=== PATIENT | female | born 1985 | race Caucasian/White ===

== ENCOUNTER 2019-09-18 17:26 | Emergency (ER) | payer SELFPAY ==
[2019-09-18 17:38] VITALS: BP 133/85
--- NOTE | 2019-09-18 17:42 | ER Document Report ---
HPI - HPI Time Seen by Provider: 09/18/19 17:38 Pain Level: 2 Notes: Patient is a 34-year-old female no significant past medical history aside from hypothyroidism who presents complaining of urinary burning, urgency, frequency, suprapubic pressure, voiding small amounts over the past month, but worsening over the past week. Patient states that she does not have insurance and has been trying to do conservative measures with minimal relief. Patient states that she is starting a sore to the right flank, but no severe pain. Denies drug allergies. Denies any headache, fever, neck pain, URI, sore throat, chest pain, palpitations, syncope, cough, shortness of breath, wheeze, dyspnea, nausea/vomiting/diarrhea, numbness/tingling, saddle anesthesia, muscle paralysis/weakness, or rash. - ROS Systems Reviewed and Negative: Yes All other systems reviewed and negative - REPRODUCTIVE Reproductive: DENIES: : Past Medical History - Social History Smoking Status: Current Every Day Smoker Chew tobacco use (# tins/day): No Frequency of alcohol use: None Drug Abuse: None Family History: Reviewed & Not Pertinent Patient has suicidal ideation: No Patient has homicidal ideation: No Vertical Provider Document - CONSTITUTIONAL Agree With Documented VS: Yes Notes: PHYSICAL EXAMINATION: GENERAL: Well-appearing, well-nourished and in no acute distress. LUNGS: Breath sounds clear to auscultation bilaterally and equal. No wheezes rales or rhonchi. HEART: Regular rate and rhythm without murmurs, rubs, gallops. ABDOMEN: Soft, nontender, nondistended abdomen. No guarding, no rebound. Normal bowel sounds present. + mild rt CVA tenderness. Musculoskeletal: FROM to passive/active. Strength 5+/5. Extremities: No cyanosis, clubbing, or edema b/l. Peripheral pulses 2+. Capillary refill less than 3 seconds. NEUROLOGICAL: Normal speech, normal gait. PSYCH: Normal mood, normal affect. SKIN: Warm, Dry, normal turgor, no rashes or lesions noted. - INFECTION CONTROL TRAVEL OUTSIDE OF THE [place] IN LAST 30 DAYS: No Course - Re-evaluation Re-evalutation: 09/18/19 Patient is an afebrile, well-hydrated, 34-year-old female who presents to the ED with an acute UTI. Vitals are acceptable without any significant tachycardia, tachypnea, or hypoxia. PE is otherwise unremarkable. Patient's abdomen is soft and nontender. She has mild rt CVA tenderness. See urinalysis results. Urine culture is pending. HCG negative. No other labs or imaging warranted at this time based on H&P. Low suspicion/risk for acute appendicitis, bowel obstruction, acute cholecystitis, acute cholangitis, perforated diverticulitis, incarcerated hernia, pancreatitis, perforated ulcer, peritonitis, sepsis, pelvic inflammatory disease, ectopic , tubo-ovarian abscess, ovarian torsion, or other systemic emergent condition at this time. Patient is aware that her condition can change from initial presentation and she needs to monitor symptoms closely and seek medical attention if any acute changes. I will send her home with a prescription for Keflex. Conservative measures otherwise for symptoms. Recheck with your PCM in 3-5 days. Consider consult with a Urologist. Return to the ED with any worsening/concerning symptoms otherwise as reviewed in discharge. Patient is in agreement. Discharge - Discharge Clinical Impression: Acute UTI (urinary tract infection) Condition: Stable Disposition: HOME, SELF-CARE Instructions: Cephalexin ([facility]), Urinary Tract Infection ([facility]) Additional Instructions: Push fluids (i.e. water, cranberry juice) Proper hygenic technique Keep the skin clean Tylenol/ibuprofen as needed May use over the counter AZO for burning with urination Take medications as directed F/u with your PCM in 3-5 days for a recheck Consider consult with a Urologist for ongoing/worsening symptoms. Return to the ED with any worsening symptoms and/or development of fever, headache, chest pain, palpitations, syncope, shortness of breath, trouble breathing, abdominal pain, n/v/d, blood in stool/urine, loss of control of bowel/bladder, urinary retention, or other worsening symptoms that are concerning to you. Prescriptions: Cephalexin Monohydrate [Keflex 500 mg Capsule] 500 mg PO TID #21 capsule Forms: Elevated Blood Pressure Referrals: [facility] [Provider Group] - Follow up as needed
[2019-09-18 18:10] LABS: APPEARANCE,URINE CLOUDY; BILIRUBIN,URINE NEGATIVE (NEGATIVE); COLOR,URINE YELLOW; GLUCOSE, URINE NEGATIVE (NEGATIVE); KETONES,URINE NEGATIVE (NEGATIVE); LEUKOCYTE ESTERASE,URINE LARGE (NEGATIVE); NITRITE,URINE NEGATIVE (NEGATIVE); PROTEIN,URINE 100 mg/dL (NEGATIVE); URINE SPECIFIC GRAVITY 1.031; UROBILINOGEN,URINE NEGATIVE mg/dL (<2.0)
== END 2019-09-18 18:40 | disposition home or self-care (01) ==
LOC: ER 17:26
DX: N39.0 Urinary tract infection, site not specified (principal); F17.200 Nicotine dependence, unspecified, uncomplicated
CPT/HCPCS: 81001; 81025; 87086; 87088; 87186; 99283

== ENCOUNTER 2019-09-27 13:01 | Emergency (ER) | payer SELFPAY ==
--- NOTE | 2019-09-27 13:13 | ER Document Report ---
ED Medical Screen (RME) - General Chief Complaint: Urinary Problem Stated Complaint: URINARY ISSUE Time Seen by Provider: 09/27/19 13:06 Notes: Patient is a 34-year-old female who presents emergency department with multiple complaints. Patient reports she was diagnosed with a urinary tract infection 8 days ago and was placed on Keflex. Patient reports after 3 to 4 days of antibiotics she felt like it was improving but has now finished the medication and feels like her symptoms are still there. Patient reports she feels incontinent of her urine and having urinary frequency. Patient denies fever. Patient reports low back pain. Patient reports she also has issues with constipation but has never gone 2 weeks without a bowel movement. Patient reports she is used Metamucil without relief. Patient also reports possibly getting bit by something to the left breast and has a draining abscess. TRAVEL OUTSIDE OF THE [place] IN LAST 30 DAYS: No - Related Data Allergies/Adverse Reactions: No Known Allergies Allergy (Verified 09/18/19 18:24) Past Medical History Past Surgical History: Reports: Hx Cholecystectomy, Hx Tubal Ligation Physical Exam - Vital signs Vitals: Temp Pulse Resp BP Pulse Ox 98.0 F 84 16 129/78 H 97 09/27/19 13:06 09/27/19 13:06 09/27/19 13:06 09/27/19 13:06 09/27/19 13:06 - Respiratory Respiratory status: No respiratory distress Chest status: Nontender Breath sounds: Normal Chest palpation: Normal Course - Re-evaluation Re-evalutation: 09/27/19 13:13 I have greeted and performed a rapid initial assessment of this patient. A comprehensive ED assessment and evaluation of the patient, analysis of test results and completion of the medical decision making process will be conducted by additional ED providers. - Vital Signs Vital signs: Temp Pulse Resp BP Pulse Ox 98.0 F 84 16 129/78 H 97 09/27/19 13:06 09/27/19 13:06 09/27/19 13:06 09/27/19 13:06 09/27/19 13:06
[2019-09-27 13:53] LABS: ABSOLUTE BASOPHILS # (AUTO) 0.1 10^3/uL (0.0-0.2); ABSOLUTE EOSINOPHILS # (AUTO) 0.3 10^3/uL (0.0-0.6); ABSOLUTE LYMPHOCYTES (AUTO) 2.3 10^3/uL (0.5-4.7); ABSOLUTE MONOCYTES (AUTO) 0.4 10^3/uL (0.1-1.4); ABSOLUTE NEUT (AUTO) 4.2 10^3/uL (1.7-8.2); EOSINOPHILS % (AUTO) 4.3 % (0-6); HEMATOCRIT 36.9 % (36.0-47.0); HEMOGLOBIN 12.5 g/dL (12.0-15.5); MEAN CORPUSCULAR HEMOGLOBIN 31.1 pg (27.0-33.4); MEAN CORPUSCULAR HGB CONC 33.8 g/dL (32.0-36.0); MEAN CORPUSCULAR VOLUME 92 fl (80-97); MONOCYTES % (AUTO) 5.4 % (3-13); PLATELET COUNT 239 10^3/uL (150-450); RED BLOOD COUNT 4.02 10^6/uL (3.72-5.28); RED CELL DISTRIBUTION WIDTH 14.4 % (11.5-14.0); SEGMENTED NEUTROPHILS % (AUTO) 57.3 % (42-78); TOTAL CELLS COUNTED % (AUTO) 100 %; WHITE BLOOD COUNT 7.3 10^3/uL (4.0-10.5)
[2019-09-27 14:13] LABS: ALBUMIN 4.1 g/dL (3.5-5.0); ALKALINE PHOSPHATASE 39 U/L (38-126); ANION GAP 9 (5-19); ASPARTATE AMINO TRANSFERASE 22 U/L (14-36); BLOOD UREA NITROGEN 18 mg/dL (7-20); CALCIUM 9.5 mg/dL (8.4-10.2); CARBON DIOXIDE 28 mmol/L (22-30); CHLORIDE 103 mmol/L (98-107); GLUCOSE 106 mg/dL (75-110); POTASSIUM 4.1 mmol/L (3.6-5.0)
[2019-09-27 14:14] LABS: BILIRUBIN,DIRECT 0.1 mg/dL (0.0-0.4); BILIRUBIN,TOTAL 0.4 mg/dL (0.2-1.3); TOTAL PROTEIN 7.2 g/dL (6.3-8.2)
--- NOTE | 2019-09-27 14:21 | ER Document Report ---
ED GI/ - General Chief Complaint: Urinary Problem Stated Complaint: URINARY ISSUE Time Seen by Provider: 09/27/19 13:06 Primary Care Provider: [facility] [Provider Group] - Follow up as needed [facility] [Provider Group] - Follow up as needed Notes: Patient is a 34-year-old female who presents to the emergency department with a chief complaint of dysuria. Patient states that she was treated for urinary tract infection on 18 September and still has symptoms. Patient states that it is not getting any better. Patient also has not had a bowel movement in the past 2 weeks. Patient denies any vomiting. Patient is unsure as to whether or not she has had vaginal discharge. Patient also states that she had an abscess to her left lateral breast. Patient states that there was purulent drainage from it, but states it is a little better. TRAVEL OUTSIDE OF THE [place] IN LAST 30 DAYS: No - Related Data Allergies/Adverse Reactions: No Known Allergies Allergy (Verified 09/18/19 18:24) Past Medical History - Social History Smoking Status: Unknown if Ever Smoked Family History: Reviewed & Not Pertinent Patient has suicidal ideation: No Patient has homicidal ideation: No Past Surgical History: Reports: Hx Cholecystectomy, Hx Tubal Ligation Review of Systems - Review of Systems Notes: REVIEW OF SYSTEMS: CONSTITUTIONAL : Denies recent illness. Denies recent unintentional weight loss. Denies fever, chills, or sweats. EENT: Denies eye, ear, throat, or mouth pain, discharge, or symptoms. Denies nasal or sinus congestion. CARDIOVASCULAR: Denies chest pain. RESPIRATORY: Denies shortness of breath, cough, congestion, difficulty breathing, or wheezing. GASTROINTESTINAL: See HPI. GENITOURINARY: See HPI. FEMALE GENITOURINARY: See HPI. MUSCULOSKELETAL: Denies neck and back pain. Denies joint pain or swelling. SKIN: Denies rash, itchiness, or lesions HEMATOLOGIC : Denies easy bruising or bleeding. LYMPHATIC: Denies swollen, painful, enlarged glands. NEUROLOGICAL: Denies no numbness or tingling denies weakness. Denies headache. Denies altered mental status. Denies alteration in speech. PSYCHIATRIC: Denies stress, anxiety, alteration in sleep patterns, or depression. All other systems reviewed and negative. Physical Exam - Vital signs Vitals: Temp Pulse Resp BP Pulse Ox 98.0 F 84 16 129/78 H 97 09/27/19 13:06 09/27/19 13:06 09/27/19 13:06 09/27/19 13:06 09/27/19 13:06 - Notes Notes: PHYSICAL EXAMINATION: GENERAL: Appears well, healthy, well-nourished, no acute distress. HEAD: Normocephalic, atraumatic. EYES: PERRL, conjunctiva normal, all extraocular movements intact, sclera nonicteric ENT: Moist mucous membranes. NECK: Supple, no noticeable swelling, redness, rash. Normal range of motion. LUNGS: Equal breath sounds bilaterally and clear to auscultation. No wheezes rales or rhonchi. CARDIOVASCULAR: S1-S2, regular rate, regular rhythm. Radial pulses 2+, normal. ABDOMEN: Normoactive bowel sounds. Soft, nontender, no guarding, no rebound tenderness, and no masses palpated. EXTREMITIES: Normal strength and range of motion, no pitting or edema. No cyanosis. NEUROLOGICAL: Moves all extremities upon command. Strength 5/5 in all extremities. PSYCH: Normal mood, normal affect. SKIN: Warm, dry. No rash, lesions, ulcerations noted. Normal skin turgor. BID WRITER: Cervical motion tenderness noted. Right adnexal tenderness noted. Course - Re-evaluation Re-evalutation: 09/27/19 15:16 Pelvic exam done with ADOLFO Gupta at bedside. Patient had cervical motion tenderness and right adnexal tenderness. Patient will be sent for transvaginal ultrasound. 09/27/19 17:00 Transvaginal ultrasound was negative for any acute findings. Patient has normal blood flow to both ovaries.Upstairs hematology is unremarkable. Chemistries are also normal. Urinalysis shows a large amount of leukocytes, but I suspect this is due to her vaginal discharge. She has 4+ epithelial cells and 3+ bacteria on her wet mount, along with 3+ WBCs. There is also a yeast on her wet mount. She will be treated for pelvic inflammatory disease with doxycycline and Flagyl. This will also cover her urinary tract infection. I offered the patient treatment for gonorrhea and chlamydia and she declined treatment for them at this time. She will also receive Diflucan for her yeast infection. She will be referred to [facility] in [facility] in regards to this visit. As for her constipation, she will be sent home with magnesium citrate and a fleets enema. I gave her instructions on how to use both. They a re in her discharge instructions. She is in agreement with this plan. Follow- up precautions were given. Verbal discharge instructions were given to the patient. They verbalized understanding. They are stable for discharge. \ - Vital Signs Vital signs: Temp Pulse Resp BP Pulse Ox 98 F 63 15 118/75 98 09/27/19 18:09 09/27/19 18:09 09/27/19 18:09 09/27/19 18:09 09/27/19 18:09 - Laboratory Result Diagrams: 09/27/19 13:26 09/27/19 13:26 Laboratory results interpreted by me: 09/27/19 09/27/19 09/27/19 13:26 13:26 13:26 RDW 14.4 H Est GFR (MDRD) Non-Af 57 L Urine Protein 30 H Ur Leukocyte Esterase LARGE H Discharge - Discharge Clinical Impression: Pelvic inflammatory disease, Bacterial vaginosis, Yeast infection, Breast abscess Urinary tract infection Qualifiers: Urinary tract infection type: acute pyelonephritis Qualified Code(s): N10 - Acute pyelonephritis Constipation Qualifiers: Constipation type: unspecified constipation type Qualified Code(s): K59.00 - Constipation, unspecified Condition: Stable Disposition: HOME, SELF-CARE Additional Instructions: You were seen today in the emergency department for urinary symptoms. You have bacterial vaginosis and pelvic inflammatory disease. You are being started on a ntibiotics. Please make sure you take all your antibiotics as prescribed. You also have a yeast infection. Take your medication as prescribed. The medication for the pelvic inflammatory disease will also cover the abscess you have on your breast. Please follow-up with the [facility] or [facility] in regards to this visit. You are being sent home with an enema. You can give this yourself at home. You are also being sent home with magnesium citrate. Take half the bottle and wait to have a bowel movement for 4 hours. If you do not have a bowel movement, d rink the rest of the bottle. Prescriptions: Fluconazole [Diflucan] 200 mg PO ONCE PRN #1 tablet PRN Reason: Doxycycline Hyclate 100 mg PO BID #28 capsule Metronidazole [Flagyl 500 mg Tablet] 500 mg PO Q6H #28 tablet Forms: Return to Work Referrals: [facility] [Provider Group] - Follow up as needed [facility] [Provider Group] - Follow up as needed
[2019-09-27 15:29] LABS: T.VAGINALIS (WET MOUNT) NO TRICHOMONAS SEEN; WBCS (WET MOUNT) 3+ WBCS SEEN; YEAST (WET MOUNT) YEAST SEEN
[2019-09-27 15:30] LABS: BACTERIA (WET MOUNT) 3+ BACTERIA SEEN; EPITHELIALS (WET MOUNT) 4+ EPITHELIALS SEEN
--- NOTE | 2019-09-27 15:48 | RADIOLOGY REPORT (SQ) ---
EXAM DESCRIPTION: ACUTE ABDOMEN SERIES COMPLETED DATE/TIME: 09/27/2019 3:25 pm REASON FOR STUDY: constipation, last bm 2 weeks ago COMPARISON: None. NUMBER OF VIEWS: Three views. TECHNIQUE: Frontal chest, supine abdomen and upright/decubitus abdomen radiographic images acquired. LIMITATIONS: None. FINDINGS: CHEST: Lungs clear of infiltrates. FREE AIR: None. No abnormal gas collections. BOWEL GAS PATTERN: Nonobstructive pattern. No dilated loops or air fluid levels. Moderate formed sto ol throughout the colon. CALCIFICATIONS: No radiopaque calcified overlie expected location of the kidneys. Scattered pelvic p hleboliths. HARDWARE: Prior cholecystectomy. SOFT TISSUES: No gross mass or suggestion of organomegaly. BONES: No acute fracture. No worrisome bone lesions. OTHER: No other significant finding. IMPRESSION: No evidence of intestinal obstruction or other acute intra-abdominal process. Moderate formed stool throughout the colon No evidence of acute intrathoracic process. TECHNICAL DOCUMENTATION: JOB ID: [id number] [employer]- All Rights Reserved Reading location - IP/workstation name: [email or web address]
[2019-09-27] MEDS ORDERED: MAGNESIUM CITRATE 296 ML BOTTLE PO ONE (16:16)
[2019-09-27] MEDS ORDERED: NA PHOS,M-B/NA PHOS,DI-BA (ADULT) 133 ML ENEMA PR ONE (16:16)
[2019-09-27 16:23] LABS: AMORPHOUS SEDIMENT,URINE TRACE /HPF; APPEARANCE,URINE CLOUDY; BILIRUBIN,URINE NEGATIVE (NEGATIVE); CALCIUM OXALATE CRYSTALS,URINE FEW /HPF; COLOR,URINE YELLOW; GLUCOSE, URINE NEGATIVE (NEGATIVE); KETONES,URINE NEGATIVE (NEGATIVE); LEUKOCYTE ESTERASE,URINE LARGE (NEGATIVE); NITRITE,URINE NEGATIVE (NEGATIVE); PROTEIN,URINE 30 mg/dL (NEGATIVE); URINE SPECIFIC GRAVITY 1.026; UROBILINOGEN,URINE NEGATIVE mg/dL (<2.0)
--- NOTE | 2019-09-27 16:38 | RADIOLOGY REPORT (SQ) ---
EXAM DESCRIPTION: U/S NON OB PEL TV W/DOPPLER COMPLETED DATE/TIME: 09/27/2019 4:16 pm REASON FOR STUDY: right sided pelvic pain COMPARISON: None. TECHNIQUE: Dynamic and static grayscale images acquired of the pelvis via transvaginal approach and recorded on PACS. Additional selected color Doppler and spectral images recorded. LIMITATIONS: None. FINDINGS: UTERUS: Unremarkable in size measuring 10.3 x 6.9 x 6.3 cm. No mass. ENDOMETRIAL STRIPE: No focal or generalized thickening. No masses. Endometrial stripe measures 1.6 c m CERVIX: Few small nabothian cysts. RIGHT OVARY AND DOPPLER: Normal size measuring 3.1 x 2.9 x 2.0 cm. No worrisome masses. Normal arteri al vascular flow without evidence for torsion. LEFT OVARY AND DOPPLER: Normal size measuring 4.4 x 2.0 x 2.6 cm. No worrisome masses. Normal arteria l vascular flow without evidence for torsion. FREE FLUID: None noted. IMPRESSION: Unremarkable pelvic ultrasound. TECHNICAL DOCUMENTATION: JOB ID: [id number]- All Rights Reserved Rev-03/13 Reading location - IP/workstation name: [email or web address]
[2019-09-27 16:53] LABS: CHLAM PCR NOT DETECTED (NOT DETECT)
[2019-09-27] MEDS ORDERED: FLUCONAZOLE 100 MG TABLET PO ONE (17:13)
[2019-09-27] MEDS ORDERED: METRONIDAZOLE 500 MG TABLET PO ONE (17:14)
[2019-09-27] MEDS ORDERED: DOXYCYCLINE HYCLATE 100 MG TABLET PO ONE (17:14)
[2019-09-27 18:10] VITALS: BP 118/75
== END 2019-09-27 18:10 | disposition home or self-care (01) ==
LOC: ER 13:01
DX: N73.9 Female pelvic inflammatory disease, unspecified (principal); N76.0 Acute vaginitis; B96.89 Other specified bacterial agents as the cause of diseases classified elsewhere; B37.49 Other urogenital candidiasis; N61.1 Abscess of the breast and nipple; N10 Acute pyelonephritis; K59.00 Constipation, unspecified; R30.0 Dysuria
CPT/HCPCS: 99284; 36415; 87210; 85025; 81025; 80053; 81001; 87491; 87591; 74022; 76830; 93976; J3490 ×2

== ENCOUNTER 2020-11-18 08:17 | Emergency (ER) | payer SELFPAY ==
[2020-11-18 08:25] VITALS: BP 128/91
--- NOTE | 2020-11-18 08:29 | ER Document Report ---
ED General - General Stated Complaint: ANKLE PAIN/FALL Time Seen by Provider: 11/18/20 08:20 Primary Care Provider: ARAMIS ESPINOSA JR, DO [ACTIVE PROVISIONAL STAFF] - 11/20/20 TRAVEL OUTSIDE OF THE [place] IN LAST 30 DAYS: No - HPI Notes: 35-year-old female presents to the emergency room today for evaluation of her left ankle and left lower extremity after she sustained a fall at 0715 this morning while she tripped on the dog blanket and fell. Denies hitting her head or any injury to other body parts. Denies any previous injury to her left ankle or left lower extremity, she is unable to bear full weight. She did take 800 mg of ibuprofen at 0725 this morning. She has tried icing but that increased her pain. Reports pain is a dull ache, 2 out of 5 when at rest. LMP October 27, 2020. , she did have a tubal ligation. Denies fevers, chills, chest pain,palpitations, shortness of breath, dyspnea, nausea, vomiting, diarrhea, abdominal pain, hematuria,blurred vision, double vision, loss of vision, speech changes, LH, dizziness, syncope, headaches, wheezing, ST, URI, neck pain, weakness, bowel or bladder dysfunction, saddle anesthesia, numbness or tingling in bilateral upper or lower extremities equally, muscle paralysis, weakness in bilateral upper or lower extremities equally or rash. Denies IV drug use. - Related Data Allergies/Adverse Reactions: No Known Allergies Allergy (Verified 11/18/20 08:40) Past Medical History - General Information source: Patient - Social History Smoking Status: Unknown if Ever Smoked Family History: Reviewed & Not Pertinent Past Surgical History: Reports: Hx Cholecystectomy, Hx Tubal Ligation Review of Systems - Review of Systems Constitutional: No symptoms reported EENT: No symptoms reported Cardiovascular: No symptoms reported Respiratory: No symptoms reported Gastrointestinal: No symptoms reported Genitourinary: No symptoms reported Female Genitourinary: No symptoms reported Musculoskeletal: See HPI Skin: No symptoms reported Hematologic/Lymphatic: No symptoms reported Neurological/Psychological: No symptoms reported Physical Exam - Vital signs Vitals: Temp Pulse Resp BP Pulse Ox 97.4 F 85 20 128/91 H 98 11/18/20 08:24 11/18/20 08:24 11/18/20 08:24 11/18/20 08:24 11/18/20 08:24 - Notes Notes: MEDICATIONS: I agree with the patient medications as charted by the RN. ALLERGIES: I agree with the allergies as charted by the RN. PAST MEDICAL HISTORY/PAST SURGICAL HISTORY: Reviewed and agree as charted by RN. SOCIAL HISTORY: Reviewed and agree as charted by RN. FAMILY HISTORY: No significant familial comorbid conditions directly related to patient complaint EXAM: Reviewed vital signs as charted by RN. PHYSICAL EXAMINATION: reviewed vital signs by RN GENERAL: Well-appearing, well-nourished and in no acute distress. HEAD: Atraumatic, normocephalic. EYES: Pupils equal round and reactive to light, extraocular movements intact, conjunctiva are normal. ENT: Nares patent, oropharynx clear without exudates. Moist mucous membranes. NECK: Normal range of motion, supple without lymphadenopathy LUNGS: Breath sounds clear to auscultation bilaterally and equal. No wheezes rales or rhonchi. HEART: Regular rate and rhythm without murmurs ABDOMEN: Soft, nontender, nondistended abdomen. No guarding, no rebound. No masses appreciated. Female : deferred Musculoskeletal: Normal range of motion, no pitting or edema. No cyanosis. left ankle with swelling, tenderness on lateral aspect of ankle that extends to the distal aspect of the left lateral lower extremity. pain with inversion and eversion. squeeze test negative bilaterally. dtr +2 BLE. Limited APROM on left distal extremity. distal pulses + 2 BLE equally. Full motor and sensory function of bilateral lower extremities. No noted open wounds or abrasion. Unable to bear full weight to left lower extremity. no vascular compromise. Peroneal nerve is intact with strong eversion and plantar flexion. Negative anterior drawer test. muscle strength 5/5 in BLE equally. NEUROLOGICAL: Cranial nerves grossly intact. Normal speech, normal gait. Normal sensory, motor exams PSYCH: Normal mood, normal affect. SKIN: Warm, Dry, normal turgor, no rashes or lesions noted. Course - Re-evaluation Re-evalutation: 11/18/20 10:28 Afebrile, vital stable no distress. Nurses notes reviewed. Will obtain an x- ray of the left ankle as well as the left tib-fib. Patient's pain currently is a 3 out of 5. She did already take a 9 mg of ibuprofen within the last couple of hours, I will give her 975 of oral acetaminophen. Extremity has been elevated. X-ray of left ankle does show a fracture of the distal tibia and posterior malleolus of the tibia. Displacement and tibiotalar joint. I did review these findings with Dr. Hector ledezma, ER supervising physician who did recommend sugar tong splint to the left lower extremity as well as a posterior splint and crutches. I did refer patient to the assistance specialist, Dr. León Espinosa who is on-call for follow-up within the next 2 days. Discussed with patient signs to look for for compartment syndrome. Discussed the importance of using crutches. I did send patient home with a sixpack of [employer], advised to not drive, drink alcohol or operate heavy machinery while taking this medication as it can cause sedation or impairment of cognitive function. Advised alternating Tylenol and ibuprofen, elevate above level of heart, do not bear any weight on extremity, etc. Consent by patient given to place left lower extremity sugar tong and posterior splint,. cms intact, sensory motor function intact in bilateral lower extremities prior to splint application fiberglass splint placed without incident. cms intact 20 minutes after splint application. Splint is in good alignment. Bilateral lower extremities with motor and sensory function intact 20 minutes after application. Pt stated that splint felt comfortable. After performing a Medical Screening Examination, I estimate there is LOW risk for OPEN FRACTURE, COMPARTMENT SYNDROME, DEEP VENOUS THROMBOSIS, ACUTE TENDON RUPTURE, or NEUROVASCULAR INJURY thus I consider the discharge disposition reasonable. I have reevaluated this patient multiple times and no significant life threatening changes are noted. The patient and I have discussed the diagnosis and risks, and we agree with discharging home to closely follow-up with their primary doctor or the referral orthopedist with the understanding that symptoms and presentations can change. We also discussed returning to the Emergency Department immediately if new or worsening symptoms occur. We have discussed the symptoms which are most concerning (e.g., changing or worsening pain, numbness, weakness) that necessitate immediate return 11/18/20 11:08 - Vital Signs Vital signs: Temp Pulse Resp BP Pulse Ox 97.4 F 85 20 128/91 H 98 11/18/20 08:24 11/18/20 08:24 11/18/20 08:24 11/18/20 08:24 11/18/20 08:24 - Laboratory Results Critical Laboratory Results Reviewed: No Critical Results - Radiology Results Critical Radiology Results Reviewed: Yes Attending or Supervising Physician who Reviewed Radiology: Discharge - Discharge Clinical Impression: Fracture of tibia, distal, left, closed Qualifiers: Encounter type: initial encounter Fracture of distal fibula Qualifiers: Encounter type: initial encounter Laterality: left Condition: Stable Disposition: HOME, SELF-CARE Instructions: Compartment Syndrome Cautions ([facility]), Use of Crutches ([facility]), Fracture of Distal Fibula ([facility]), Fractured Ankle (Bimalleolar) ([facility]), Oral Narcotic Medication ([facility]), Splint Precautions ([facility]), Temporary Splint ([facility]) Additional Instructions: Your x-ray today shows that you have fractures of the distal fibula and posterior malleolus of the tibia. There is some displacement of the tibiotalar joint. It is imperative that you do follow-up with the assistance specialist November 20 to schedule an appointment, this is Dr. Espinosa's office. Please do not drive, drink alcohol or operate heavy machinery while taking m edications as this can cause sedation or impairment of cognitive function. Please keep elevated above level of your heart when you are not walking. Use crutches to do not bear any weight on your left ankle. You can alternate chain Tylenol and ibuprofen for pain control. Forms: Parent Work Note, Return to Work Referrals: ARAMIS ESPINOSA JR, DO [ACTIVE PROVISIONAL STAFF] - 11/20/20 RAKAN WING MD [ACTIVE STAFF] - Follow up as needed
[2020-11-18] MEDS ORDERED: ACETAMINOPHEN 325 MG TABLET PO ONE (09:11)
--- NOTE | 2020-11-18 09:45 | RADIOLOGY REPORT (SQ) ---
EXAM DESCRIPTION: TIBIA FIBULA LEFT IMAGES COMPLETED DATE/TIME: 11/18/2020 9:36 am REASON FOR STUDY: s/p fall this am, lower left leg swelling COMPARISON: None. NUMBER OF VIEWS: Two views. TECHNIQUE: Two radiographic images acquired of the left tibia and fibula to include the knee and ank le in at least one projection. LIMITATIONS: None. FINDINGS: MINERALIZATION: Normal. BONES: Fractured ankle, reported separately. The remainder of the tibia and fibula are intact. No w orrisome bone lesions. SOFT TISSUES: No obvious swelling or foreign body. OTHER: No other significant finding. IMPRESSION: FRACTURE OF THE ANKLE REPORTED SEPARATELY. THE REMAINDER OF THE TIBIA AND FIBULA ARE IN TACT. TECHNICAL DOCUMENTATION: JOB ID: [id number] 2010 [employer]- All Rights Reserved Reading location - IP/workstation name: [email or web address]
--- NOTE | 2020-11-18 09:46 | RADIOLOGY REPORT (SQ) ---
EXAM DESCRIPTION: ANKLE LEFT COMPLETE IMAGES COMPLETED DATE/TIME: 11/18/2020 9:36 am REASON FOR STUDY: s/p fall, +swelling and pain COMPARISON: None. NUMBER OF VIEWS: Three views. TECHNIQUE: AP, lateral, and oblique radiographic images acquired of the left ankle. LIMITATIONS: None. FINDINGS: MINERALIZATION: Normal. BONES: Fracture of the distal fibula and posterior malleolus of the tibia. Displacement in the tibio talar joint. JOINTS: No effusions. SOFT TISSUES: No soft tissue swelling. No foreign body. OTHER: No other significant finding. IMPRESSION: FRACTURES OF THE DISTAL TIBIA AND FIBULA. TECHNICAL DOCUMENTATION: JOB ID: [id number] 2010 [employer]- All Rights Reserved Reading location - IP/workstation name: [email or web address]
[2020-11-18] MEDS ORDERED: HYDROCODONE/ACETAMINOPHEN 5-325 MG (6 TAB/ER DISP) PO PRN (10:25)
== END 2020-11-18 10:54 | disposition home or self-care (01) ==
LOC: ER 08:17
DX: S82.302A Unspecified fracture of lower end of left tibia, initial encounter for closed fracture (principal); S82.832A Other fracture of upper and lower end of left fibula, initial encounter for closed fracture; M25.572 Pain in left ankle and joints of left foot; M79.605 Pain in left leg; W19.XXXA Unspecified fall, initial encounter
CPT/HCPCS: 99284